=== PATIENT | female | born 1930 ===

== ENCOUNTER 2020-10-06 10:25 | Outpatient (CLI) | payer OTHER ==
[~2020-10-06 10:25] MED LIST: ADVAIR 2501 DISK W/1; SINGULAIR10 MG
== END 2020-10-06 10:27 | disposition home or self-care (01) ==
LOC: NUCLEAR 10:25
PROVIDERS: ATTEND Internal Medicine Cardiovascular Disease
DX: I87.2 Venous insufficiency (chronic) (peripheral) (principal)